=== PATIENT | male | born 1965 ===

== ENCOUNTER 2022-08-22 07:31 | Outpatient (CLI) | payer OTHER ==
[~2022-08-22 07:31] MED LIST: DOLOGESIC CAPSU1 CAP PO; ORPH100T PO
== END 2022-08-22 07:33 | disposition home or self-care (01) ==
LOC: LAB 07:31
DX: N52.02 Corporo-venous occlusive erectile dysfunction (principal); R53.83 Other fatigue; Z12.5 Encounter for screening for malignant neoplasm of prostate; B20 Human immunodeficiency virus [HIV] disease

== ENCOUNTER → 2024-09-07 09:35 | Outpatient (CLI) | payer OTHER ==
[2024-09-07 10:40] LABS: PH,URINE 5.5 (5.0-8.0); URINE APPEARANCE Clear; URINE BILIRRUBIN Negative (NEGATIVE); URINE BLOOD Negative; URINE COLOR Dark Yellow; URINE GLUCOSE Negative (NEGATIVE); URINE KETONE Trace (NEGATIVE); URINE LEUKOCYTE Negative; URINE NITRATE Negative; URINE PROTEIN Negative (NEGATIVE); URINE UROBILINOGEN 0.2 E.U./dl
[2024-09-07 10:57] LABS: URINE BACTERIA 45.2 uL (0.0-1933); URINE EPITHELIAL CELLS 2.5 uL (0.0-38.8); URINE RBC 5.3 uL (0.0-20.8); URINE WBC 3.6 uL (0.0-23.2)
[2024-09-07 11:20] LABS: ALBUMIN 4.1 gm/dL (3.4-5.0); BILIRUBIN TOTAL 2.09 mg/dL (0.3-1.2); CREATININE SERUM 0.84 mg/dL (0.70-1.30); GFR 93.52; GLOBULINA 2.9 G/DL (2.4-3.5); POTASSIUM 4.38 mEq/L (3.5-5.1)
== END | disposition home or self-care (01) ==
LOC: LAB 09:35
PROVIDERS: ATTEND Urology
DX: E29.1 Testicular hypofunction (principal); N52.02 Corporo-venous occlusive erectile dysfunction; B20 Human immunodeficiency virus [HIV] disease; E78.5 Hyperlipidemia, unspecified

== ENCOUNTER 2024-12-28 07:27 | Outpatient (CLI) | payer OTHER ==
[2024-12-28 08:26] LABS: URINE APPEARANCE Clear; URINE BILIRRUBIN Negative (NEGATIVE); URINE BLOOD Negative; URINE COLOR Yellow; URINE GLUCOSE Negative (NEGATIVE); URINE KETONE Trace (NEGATIVE); URINE LEUKOCYTE Negative; URINE NITRATE Negative; URINE PROTEIN Negative (NEGATIVE); URINE UROBILINOGEN 0.2 E.U./dl
[2024-12-28 08:30] LABS: URINE BACTERIA 13.1 uL (0.0-1933); URINE RBC 2.0 uL (0.0-20.8)
[2024-12-28 08:34] LABS: URINE CAST 0.00 uL (0.0-1.40); URINE EPITHELIAL CELLS 1.3 uL (0.0-38.8); URINE WBC 1.2 uL (0.0-23.2)
[2024-12-28 09:23] LABS: FREE TRIODOTIRONINE 2.35 pg/ml (2.18-3.98); PROSTATIC SPECIFIC ANTIGEN 1.05 NG/ML (0.010-4.00); T4 FREE 0.88 NG/ML (0.76-1.46); TSH 1.56 uIU/mL (0.358-3.74)
== END 2024-12-28 07:30 | disposition home or self-care (01) ==
LOC: LAB 07:27
PROVIDERS: ATTEND Family Medicine Geriatric Medicine
DX: E27.49 Other adrenocortical insufficiency (principal); E11.9 Type 2 diabetes mellitus without complications; E34.32 Genetic causes of short stature; D50.9 Iron deficiency anemia, unspecified; E78.41 Elevated Lipoprotein(a); R79.83 Abnormal findings of blood amino-acid level; N40.0 Benign prostatic hyperplasia without lower urinary tract symptoms; R30.0 Dysuria; R70.0 Elevated erythrocyte sedimentation rate; M19.079 Primary osteoarthritis, unspecified ankle and foot; N52.9 Male erectile dysfunction, unspecified; E03.8 Other specified hypothyroidism